=== PATIENT | male | born 1990 | race Caucasian/White ===

== ENCOUNTER 2022-03-18 22:39 | Emergency (ER) | payer BC, SELFPAY ==
[2022-03-18 22:42] VITALS: BP 147/93; PULSE 72; RESP 18; TEMP 36.3; O2SAT 100
[2022-03-18 23:37] VITALS: BP 127/87; PULSE 69; RESP 14; O2SAT 99
--- NOTE | 2022-03-18 23:55 | ED.SKABFB ---
HPI - Skin/Abscess/Foreign Bdy General Chief complaint: Skin/Abscess/Foreign Body <JEFF Concepcion Last Filed: 03/19/22 02:59> Stated complaint: abcess behind ear <JEFF Concepcion Last Filed: 03/19/22 02:59> Time Seen by Provider: 03/18/22 23:39 <JEFF Concepcion Last Filed: 03/19/22 02:59> History of Present Illness HPI narrative: Patient is a 31-year-old male here for evaluation of a painful lump under his left ear that he noticed today. Notes that the lump is red and tender to palpation. He took some Excedrin Migraine with mild relief. Denies congestion, cough, fevers, chills. No pain behind ear or difficulty hearing. <JEFF Concepcion Last Filed: 03/19/22 02:59> Related Data Allergies/Adverse reactions: Allergies Allergy/AdvReac Type Severity Reaction Status Date / Time No Known Allergies Allergy Mild Verified 03/18/22 23:37 <JEFF Concepcion Last Filed: 03/19/22 02:59> Review of Systems Review of Systems: Gen.: Denies fevers or chills Eyes: Denies eye pain or visual change ENT: Reports pain under left ear. Respiratory: Denies shortness of breath or cough CV: Denies chest pain or palpitations GI: Denies abdominal pain nausea, emesis or diarrhea denies burning, urgency, frequency or hematuria Musculoskeletal: Denies back pain or muscle pain Neuro: Denies numbness, tingling, weakness or focal weakness Skin: Reports redness under left ear. Except as documented, all other systems reviewed and negative <JEFF Concepcion Last Filed: 03/19/22 02:59> Exam Narrative: APPEARANCE: Well appearing, no pain in distress, well-nourished. Head: Normocephalic and atraumatic. EYES: PERRLA/EOMI, conjunctivae clear NOSE: No nasal drainage EARS: Effusion noted in left ear. Right TM normal. THROAT: Oropharynx is clear. Mucous membranes are moist. NECK: Supple. Submandibular lymphadenopathy. RESPIRATORY: Airway patent, respirations nonlabored. Clear to auscultation bilaterally, no rales, rhonchi, wheezing. CARDIOVASCULAR: Regular rate and rhythm without murmurs, rubs, or gallops. ABDOMINAL: Normoactive bowel sounds. Soft, nontender, nondistended. No rebound tenderness or guarding. MUSCULOSKELETAL: Extremities are warm and well-perfused. Moves all extremities well. No edema. NEURO: Normal speech. No focal neurologic deficits. SKIN: Patient has postauricular lymphadenopathy that is tender to palpation. No lesions to scalp noted. PSYCHIATRIC: Normal affect/mood. <Nancy Iqbal PA-C - Last Filed: 03/19/22 02:59> Course SCREENER AND BLENDER OPERATOR/PA Physician Supervision For this patient encounter, I reviewed the SCREENER AND BLENDER OPERATOR or PA documentation, treatment plan, and medical decision making; and I had [id number] time with this patient. <Vincent Chi MD - Last Filed: 03/19/22 03:31> Vital Signs Vital signs: Vital Signs Temperature 97.4 F L 03/18/22 22:42 Pulse Rate 72 03/18/22 22:42 Respiratory Rate 18 03/18/22 22:42 Blood Pressure 147/93 H 03/18/22 22:42 Pulse Oximetry 100 03/18/22 22:42 Oxygen Delivery Room Air 03/18/22 22:42 Temperature 97.4 F L 03/18/22 22:42 Pulse Rate 70 03/19/22 00:57 Respiratory Rate 18 03/19/22 00:57 Blood Pressure 122/77 03/19/22 00:57 Pulse Oximetry 100 03/19/22 00:57 Oxygen Delivery Room Air 03/18/22 22:42 <Nancy Iqbal PA-C - Last Filed: 03/19/22 02:59> Vital Signs Temperature 97.4 F L 03/18/22 22:42 Pulse Rate 72 03/18/22 22:42 Respiratory Rate 18 03/18/22 22:42 Blood Pressure 147/93 H 03/18/22 22:42 Pulse Oximetry 100 03/18/22 22:42 Oxygen Delivery Room Air 03/18/22 22:42 Temperature 97.4 F L 03/18/22 22:42 Pulse Rate 70 03/19/22 00:57 Respiratory Rate 18 03/19/22 00:57 Blood Pressure 122/77 03/19/22 00:57 Pulse Oximetry 100 03/19/22 00:57 Oxygen Delivery Room Air 03/18/22 22:42 <Vincent R
[2022-03-19] MEDS: IBUPROFEN 600 MG TABLET PO (00:29)
[2022-03-19] MEDS: AMOXICILLIN/CLAVULANATE K 875-125 MG TAB 1 TABLET PO (00:54)
[2022-03-19 00:57] VITALS: BP 122/77; PULSE 70; RESP 18; O2SAT 100
== END 2022-03-19 00:57 | disposition home or self-care (01) ==
PROVIDERS: Emergency Provider Emergency Medicine
DX: H65.02 Acute serous otitis media, left ear (principal)
CPT/HCPCS: 99283; A9270

== ENCOUNTER 2022-07-11 10:30 | Emergency (ER) | payer BC, SELFPAY ==
--- NOTE | ~2022-07-11 | XR_ITS ---
EXAMINATION: [id number] INDICATION: Right rib pain TECHNIQUE: A frontal view of the chest and 3 views of the right ribs were obtained. COMPARISON: None. FINDINGS: The lungs are free of acute opacities. No pleural effusion or pneumothorax. The cardiomedia stinal silhouette is normal. The visualized bones and soft tissues are unremarkable. No displaced rib fracture is identified. IMPRESSION: 1. No acute cardiopulmonary abnormality or evidence of displaced rib fracture. Reviewed, dictated and finalized at location A. DYNAM[employer] DEVELOPER
[2022-07-11 11:01] VITALS: BP 124/72; PULSE 72; RESP 18; TEMP 36.4; O2SAT 100
--- NOTE | 2022-07-11 12:03 | ED.URI ---
HPI - URI/Sore Throat General Chief Complaint: Upper Respiratory Infection Stated Complaint: Sinus Time Seen by Provider: 07/11/22 12:03 Source: patient Mode of arrival: ambulatory Limitations: no limitations History of Present Illness HPI Narrative: 32-year-old male presents with complaint that he had up an upper respiratory infection the past 2 weeks. Reports that he had nasal congestion, sinus pressure, cough and chest congestion that is now improving. He states that since coughing he has had pain to his right chest that is worse with movement and cough. Is concerned that he may have broken a rib, pulled a muscle or has pneumonia. He is afebrile. He is not taking any [id number] medications because he states his symptoms have resolved. All systems reviewed and negative except as noted above. Related Data Allergies Allergy/AdvReac Type Severity Reaction Status Date / Time No Known Allergies Allergy Mild Verified 07/11/22 11:10 Review of Systems Review of Systems: CONSTITUTIONAL: Denies fever, chills, or sweats. EYES: Denies visual changes, redness, or discharge. ENT: Denies rhinorrhea, congestion, sore throat, or otalgia. CARDIOVASCULAR: Denies chest pain, palpitations, or edema. RESPIRATORY: Denies cough or dyspnea. GASTROINTESTINAL: Denies abdominal pain, nausea, vomiting, or diarrhea. GENITOURINARY: Denies dysuria or hematuria. SKIN: Denies rash or itching. MUSCULOSKELETAL: Denies back pain, joint pain, or myalgia. Reports right-sided chest pain. NEUROLOGIC: Denies headache, numbness, or weakness. PSYCHIATRIC: Denies anxiety or depression. All other systems reviewed are negative, except as documented in HPI. PMFSH Comments At time of signature, agree with nursing past medical, surgical, social and family history. There is no relevant family history pertinent to the presenting complaint. Exam Narrative: GENERAL: This is a well-nourished, well-developed patient, in no apparent distress. HEAD: normocephalic, atraumatic. EYES: PERRL. Sclera clear/white. Vision is grossly intact. EARS: External ears normal, auditory canals clear and without drainage, TMs normal without perforation. Hearing grossly intact. NOSE: External nose normal with Clear nasal drainage with erythema to both nares. THROAT: Mucous membranes moist, Clear postnasal drainage. NECK: Neck supple, non-tender without lymphadenopathy, masses or thyromegaly. CARDIOVASCULAR: Regular rate and rhythm without murmurs, gallops, or rubs. RESPIRATORY: Clear to auscultation. Breath sounds equal bilaterally. No wheezes, rales, or rhonchi. MUSCULOSKELETAL: tenderness on palpation to right upper chest. There is no swelling or bruising noted. Pain reproducible with palpation and with movement of right upper arm. SKIN: warm, Dry, intact with no suspicious lesions or rash, good texture and turgor. NEURO: awake, alert, and oriented to person, place and time. There were no obvious focal neurologic abnormalities. EXTREMITIES: No joint tenderness, effusion, or edema noted. Chest: Chest/axillae images: 1. Tender on palpation Course Course Level of Care: Express Care Visit Vital Signs Vital signs: Vital Signs Temperature 36.4 C 07/11/22 11:01 Pulse Rate 72 07/11/22 11:01 Respiratory Rate 18 07/11/22 11:01 Blood Pressure 124/72 07/11/22 11:01 Pulse Oximetry 100 07/11/22 11:01 Oxygen Delivery Room Air 07/11/22 11:01 Temperature 36.4 C 07/11/22 11:01 Pulse Rate 72 07/11/22 11:01 Respiratory Rate 18 07/11/22 11:01 Blood Pressure 124/72 07/11/22 11:01 Pulse Oximetry 100 07/11/22 11:01 Oxygen Delivery Room Air 07/11/22 11:01 reviewed MDM - URI/Sore Throat MDM Narrative Medical decision making narrative: Patient is aware of diagnosis, understands and agrees to treatment plan. Anticipatory guidance given. Patient agrees to follow-up as directed and is aware of reasons to seek care at the emergency de
== END 2022-07-11 13:01 | disposition home or self-care (01) ==
PROVIDERS: Emergency Provider Nurse Practitioner Family
DX: J01.90 Acute sinusitis, unspecified (principal); S29.011A Strain of muscle and tendon of front wall of thorax, initial encounter; X58.XXXA Exposure to other specified factors, initial encounter
CPT/HCPCS: 71101; 99213; G0463

== ENCOUNTER 2022-11-02 10:49 | Emergency (ER) | payer BC, SELFPAY ==
--- NOTE | 2022-11-02 10:50 | ED.EYEPROB ---
HPI - Eye Problem General Chief complaint: Eye Problems Stated complaint: let eye redness Time Seen by Provider: 11/02/22 10:50 Source: patient Mode of arrival: ambulatory Limitations: no limitations History of Present Illness HPI Narrative: Robbie is a 32-year-old male patient presenting to the clinic today with complaints of left eye redness/discomfort. He reports he thinks he may have gotten some dust in his eye this morning when he was going up a ladder. States that he is having difficulty keeping his eye open due to the discomfort. Vision is blurry in the left eye. States that he feels as though there is something in the left upper lateral eyelid. Related Data Allergies Allergy/AdvReac Type Severity Reaction Status Date / Time No Known Allergies Allergy Mild Verified 11/02/22 10:55 Review of Systems Review of Systems: Pertinent positives per HPI. Patient denies any fever, chills, rash, headache, dizziness, cough, runny nose, sore throat, shortness of breath, chest pain, palpitations, nausea, vomiting, diarrhea, constipation, abdominal pain, or any urinary issues. PMFSH Comments At the time of my signature, I reviewed and agree with the nursing past medical, surgical, social, and family history. There is no relevant family history pertinent to the patient complaint. Exam Narrative: General: Well-developed, well nourished, in no apparent distress Head: Normocephalic, atraumatic Eyes: Pupils equally round and reactive to light bilaterally, EOM intact, right sclera and conjunctive clear, no discharge, left sclera and conjunctive injected with clear watery discharge, small red foreign body removed from the upper eyelid using a wet Q-tip, lids normal Ears: TMs intact and clear, ear canals clear, no drainage, grossly hearing normal. Nose: Nares patent, no discharge, no inflammation, no sinus tenderness. Mouth: Oropharynx without lesions or masses, good dentition, MMM. Neck: Supple, trachea midline, no enlargement of anterior or posterior cervical nodes, no thyroid masses or goiter palpable. Cardio: Regular rate and rhythm, s1 and s2 normal, no murmur appreciated. Resp: Clear to auscultation bilaterally anteriorly and posteriorly, no rhonchi, rales, wheezing or rubs Course Course Emergency Course: Portions of this record may have been created with voice recognition software. Level of Care: Express Care Visit Vital Signs Vital signs: Vital Signs Temperature 36.7 C 11/02/22 10:56 Pulse Rate 69 11/02/22 10:56 Respiratory Rate 16 11/02/22 10:56 Blood Pressure 143/69 H 11/02/22 10:56 Pulse Oximetry 99 11/02/22 10:56 Oxygen Delivery Room Air 11/02/22 10:56 Temperature 36.7 C 11/02/22 10:56 Pulse Rate 69 11/02/22 10:56 Respiratory Rate 16 11/02/22 10:56 Blood Pressure 143/69 H 11/02/22 10:56 Pulse Oximetry 99 11/02/22 10:56 Oxygen Delivery Room Air 11/02/22 10:56 Vital signs reviewed Procedures FB Removal Eye Foreign Body #1: Foreign Body Removal Date: 11/02/22 Location: eye (L) Topical anesthetic used: tetracaine Foreign body: other (red flake) Evidence of corneal penetration: No Technique: irrigation and cotton tip swab Procedure performed under: direct visualization with magnification Post-procedure medication: topical anesthetic Patient tolerated procedure: well Foreign Body Removal Narrative: Topical anesthetic was instilled with good anesthesia using 1gtt of opth anesthetic agent (tetracaine). Fluorescein stain of the left eye was performed without uptake of dye. No epithelial defect was noted. NO ulcer or dendritic lesions. Upper lid was everted and red flake FB was removed with wet cotton tip applicator. No Pai sign. Normal saline irrigation eye solution was performed and the patient tolerated the procedure well, no adverse reaction or complications. MDM - Eye Problem MDM Narrative Medical decis
[2022-11-02 10:56] VITALS: BP 143/69; PULSE 69; RESP 16; TEMP 36.7; O2SAT 99
== END 2022-11-02 11:31 | disposition home or self-care (01) ==
LOC: EXPCOLL 10:51
PROVIDERS: Emergency Provider Nurse Practitioner Family
DX: T15.92XA Foreign body on external eye, part unspecified, left eye, initial encounter (principal); X58.XXXA Exposure to other specified factors, initial encounter
CPT/HCPCS: 65205; 99213; A9270; G0463